=== PATIENT | female | born 1980 | race Two or more races ===

== ENCOUNTER 2025-08-21 14:55 | Emergency (ER) | payer OTHER ==
[~2025-08-21] VITALS: Ht 154.9 cm; Wt 109.8 kg
[2025-08-21 17:50] LABS: BASO % 0.7 % (0.1-1.2); EOS # 0.11 (0.04-0.54); EOS % 1.5 % (0.7-7.0); LYMPH # 2.21 (1.18-3.74); LYMPH % 30.0 % (19.3-53.1); MEAN PLATELET VOLUME 10.10 fl (9.4-12.4); MONO # 0.62 (0.24-0.82); MONO % 8.4 % (4.7-12.5); NEUT # 4.35 (1.56-6.13); NEUT % 59.1 % (34.0-71.1); RED CELL DISTRIBUTION WIDTH 12.8 % (11.6-14.4)
[2025-08-21 18:09] LABS: INR 1.07
[2025-08-21 18:36] LABS: ALT/SGPT 27 U/L (12-78); AST/SGOT 15 U/L (15-37); BILIRUBIN TOTAL 1.47 mg/dL (0.3-1.2); BUN CREA RATIO 19 (7.0-25.0); CREATININE SERUM 0.78 mg/dL (0.55-1.02); GFR 79.87; GLOBULINA 3.2 G/DL (2.4-3.5); GLUCOSE FASTING 91 mg/dL (65-100); OSMOLALITY SERUM 280 MOSM/KG (275-295)
[2025-08-21 18:38] LABS: HCG QUANTITATIVE < 1 mUI/mL (1-3)
[2025-08-21 18:56] LABS: URINE APPEARANCE Clear; URINE BILIRRUBIN Negative (NEGATIVE); URINE BLOOD Large; URINE COLOR Yellow; URINE GLUCOSE Negative (NEGATIVE); URINE KETONE Trace (NEGATIVE); URINE LEUKOCYTE Small; URINE NITRATE Negative; URINE PROTEIN Negative (NEGATIVE); URINE UROBILINOGEN 1.0 E.U./dl
[2025-08-21 18:56] LABS: ERYTHROCYTE SEDIMENTATION RATE 15 mm/hr (0-20)
[2025-08-21 19:01] LABS: URINE BACTERIA 842.4 uL (0.0-1933); URINE EPITHELIAL CELLS 9.5 uL (0.0-38.8); URINE RBC 132.5 uL (0.0-20.8); URINE WBC 22.1 uL (0.0-23.2)
[2025-08-21 19:14] LABS: URINE CAST 0.00 uL (0.0-1.40)
[2025-08-21 19:20] LABS: URINE MUCUS SCANT
== END 2025-08-22 00:30 | disposition home or self-care (01) ==
LOC: ER 14:55
DX: N93.9 Abnormal uterine and vaginal bleeding, unspecified (principal); D21.9 Benign neoplasm of connective and other soft tissue, unspecified; E03.8 Other specified hypothyroidism; Z88.6 Allergy status to analgesic agent

== ENCOUNTER 2025-11-01 04:57 | Day surgery (SDC) | payer OTHER ==
[2025-10-24 08:11] VITALS: BP 110/70
[2025-10-24 08:17] LABS: URINE APPEARANCE Clear; URINE BILIRRUBIN Negative (NEGATIVE); URINE BLOOD Negative; URINE COLOR Yellow; URINE GLUCOSE Negative (NEGATIVE); URINE KETONE Negative (NEGATIVE); URINE LEUKOCYTE Negative; URINE NITRATE Negative; URINE PROTEIN Negative (NEGATIVE); URINE UROBILINOGEN 1.0 E.U./dl
[2025-10-24 08:18] LABS: URINE BACTERIA 410.6 uL (0.0-1933); URINE EPITHELIAL CELLS 11.3 uL (0.0-38.8); URINE RBC 7.3 uL (0.0-20.8); URINE WBC 5.0 uL (0.0-23.2)
[2025-10-24 08:28] LABS: URINE CAST 0.00 uL (0.0-1.40)
[2025-10-24 08:38] LABS: BASO % 0.7 % (0.1-1.2); EOS # 0.15 (0.04-0.54); EOS % 2.5 % (0.7-7.0); LYMPH # 2.36 (1.18-3.74); LYMPH % 40.1 % (19.3-53.1); MEAN PLATELET VOLUME 11.20 fl (9.4-12.4); MONO # 0.56 (0.24-0.82); MONO % 9.5 % (4.7-12.5); NEUT # 2.76 (1.56-6.13); NEUT % 46.9 % (34.0-71.1); RED CELL DISTRIBUTION WIDTH 12.9 % (11.6-14.4)
[2025-10-24 08:49] LABS: INR 1.04
[2025-10-24 08:55] LABS: ALT/SGPT 33.0 U/L (12-78); AST/SGOT 15.0 U/L (15-37); BILIRUBIN TOTAL 1.98 mg/dL (0.3-1.2); BUN CREA RATIO 22.0 (7.0-25.0); CREATININE SERUM 0.63 mg/dL (0.55-1.02); GFR 101.73; GLOBULINA 2.8 G/DL (2.4-3.5); GLUCOSE FASTING 89.0 mg/dL (65-100); OSMOLALITY SERUM 285.0 MOSM/KG (275-295)
[~2025-11-01 04:57] MED LIST: LIPITOR40 MG; SINGULAIR10 MG PO; SYNTHROID100 MCG
[2025-11-01] MEDS ORDERED: CEFAZOLIN SODIUM 1,000 MG VIAL ONE (06:09)
[2025-11-01] MEDS ORDERED: POVIDONE-IODINE 118 ML BOTT TOP ONE (07:03)
[2025-11-01] MEDS ORDERED: CHLORHEXIDINE GLUCONATE 120 ML BOTTLE TOP ONE (07:03)
[2025-11-01] MEDS ORDERED: TRAMADOL HCL50 MG PO (09:20)
[2025-11-01] MEDS ORDERED: DOXYCYCLINE HY100 M2 PO (09:21)
== END 2025-11-01 13:00 | disposition home or self-care (01) ==
LOC: CIR.AMB 04:57
PROVIDERS: ATTEND Obstetrics & Gynecology
DX: D25.0 Submucous leiomyoma of uterus (principal); N95.0 Postmenopausal bleeding; N84.0 Polyp of corpus uteri